=== PATIENT | male | born 1945 | race Caucasian/White ===

== ENCOUNTER 2017-04-07 10:29 | Emergency (ER) | payer MEDICARE, BC ==
[2017-04-07 10:55] VITALS: BP 148/70
--- NOTE | 2017-04-07 11:44 | UC ---
Ear Complaint HPI - HPI Summary HPI Summary: 71 male presents to with complaints of some hearing loss out of left ear that began 3 days ago. Patient states he had this problem a few years ago with right ear and had cerumen removed. Has not had issues since on now, with the left ear. Patient denies any discharge, fever/chills or pain. States he can't hear as well and feels as though it is under water. Denies any other complaints. PMHx significant for HTN and cardiac disease. No hearing loss or complaints of right ear. - History of Current Complaint Chief Complaint: UCEar Stated Complaint: LEFT EAR COMPLAINT Time Seen by Provider: 04/07/17 11:30 Hx Obtained From: Patient Onset/Duration: Sudden Onset Severity Initially: Mild Severity Currently: Mild Pain Intensity: 0 Pain Scale Used: 0-10 Numeric Aggravating Factors: Nothing Alleviating Factors: Nothing Associated Signs/Symptoms: Positive: Hearing Loss - Allergies/Home Medications Allergies/Adverse Reactions: Allergies Allergy/AdvReac Type Severity Reaction Status Date / Time No Known Allergies Allergy Verified 09/12/15 08:49 Home Medications: Home Medications Hydrochlorothiazide TAB* [Hydrodiuril TAB*] 12.5 mg PO DAILY 04/07/17 [History Confirmed 04/07/17] Losartan TAB* [Cozaar TAB*] 100 mg PO DAILY 04/07/17 [History Confirmed 04/07/17 ] Rosuvastatin (NF) [Crestor (NF)] 10 mg PO 1700 04/07/17 [History Confirmed 04/07] amLODIPine TAB* [Norvasc 5 mg TAB*] 5 mg PO DAILY 04/07/17 [History Confirmed ] PMH/Surg Hx/FS Hx/Imm Hx Cardiovascular History: Cardiac Disease, Hypertension - Surgical History Surgical History: Yes Surgery Procedure, Year, and Place: CARDIAC CATH (PT HAS A CARD - WILL BRING WITH HIM-MULTILINK VISION , CONDITIONAL 5 -ONLY SCAN ON A 1.5T- PER ), QUADRUPLE BYPASS 2003, cardiac stent 2011 - Family History Known Family History: Positive: Cardiac Disease - Social History Alcohol Use: None Substance Use Type: None Smoking Status (MU): Never Smoked Tobacco Review of Systems Constitutional: Negative Eyes: Negative ENT: Ear Ache - hearing loss left ear Respiratory: Negative Cardiovascular: Negative Neurovascular: Negative Neurological: Negative All Other Systems Reviewed And Are Negative: Yes Physical Exam Triage Information Reviewed: Yes Appearance: Well-Appearing, No Pain Distress, Well-Nourished Vital Signs: Initial Vital Signs Temp 97.5 F 04/07/17 10:51 Pulse 62 04/07/17 10:51 Resp 16 04/07/17 10:51 BP 148/70 04/07/17 10:51 Pulse Ox 99 04/07/17 10:51 Vital Signs Reviewed: Yes Eyes: Positive: Conjunctiva Clear ENT: Positive: Normal ENT inspection, Hearing grossly normal - decreased however on left side with whisper test, Pharynx normal, TMs normal - once cerumen impaction of left EAC was removed with irrigation was able to view tympanic membrane and normal without infection. cerumen removed without complication. hearing improved, asymptomatic Neck: Positive: Supple, Nontender Respiratory: Positive: Chest non-tender, Lungs clear, Normal breath sounds, No respiratory distress, No accessory muscle use. Negative: Decreased breath sounds, Wheezing Cardiovascular: Positive: RRR, No Murmur, Pulses Normal, Brisk Capillary Refill Musculoskeletal: Positive: Strength Intact Skin Exam: Normal Ear Complaint Course/Dx - Course Course Of Treatment: left EAC was irrigated by Elif CONN without complication, tolerated well. had significant improvment and cerumen was cleared. no other concerns TMs appeared normal. Given debrox to remove small remaining amount of wax and to prevent build up. instructed on proper use. and q-tip use only on outside. aware of worsening signs and symptoms. follow up pcp. - Differential Dx/Diagnosis Differential Diagnosis/HQI/PQRI: Cerumen Impaction, Foreign Body, Otitis Externa , Otitis Media Provider Diagnoses: left cerumen impaction Discharge - Discharge Plan Condition: Improved Disposition: HOME Prescriptions: Carbamide Peroxide 6.5% OTIC* [DEBROX 6.5% Otic*] 5 drop LEFT EAR BID #1 bottle Patient Education Materials: Cerumen Impaction (ED) Referrals: Matt Verdin MD [Primary Care Provider] - Additional Instructions: Use prescribed drops to help with was build up and to soften remaining wax to draw it out. For the next 4 days as directed. Let warm shower water drain into and out of ear canal. IF symptoms do not improve or worsen again please seek medical attention for another ear irrigation. Follow up with primary care provider. Avoid use of q-tips inside of ear canal.
== END 2017-04-07 12:40 | disposition home or self-care (01) ==
LOC: UCCORT 10:29
DX: H61.22 Impacted cerumen, left ear (principal); I10 Essential (primary) hypertension
CPT/HCPCS: 99212; G0463